=== PATIENT | female | born 1980 | race Native Hawaiian/Other Pacific Islander ===

== ENCOUNTER 2023-01-29 09:40 | Emergency (ER) | payer OTHER ==
[~2023-01-29] VITALS: Ht 162.6 cm; Wt 62.7 kg
[2023-01-29] MEDS ORDERED: KETOROLAC 60MG 2ML VIAL IM ONE (11:45)
[2023-01-29] MEDS ORDERED: AMOX875T2 PO (12:27)
[2023-01-29 12:47] VITALS: BP 118/81; TEMP 99.2; O2SAT 97
== END 2023-01-29 12:48 | disposition home or self-care (01) ==
LOC: M ED 09:40
DX: J01.00 Acute maxillary sinusitis, unspecified (principal); F10.10 Alcohol abuse, uncomplicated; Z79.2 Long term (current) use of antibiotics
CPT/HCPCS: 70450; 71046; 72125; 96372; 99283; J1885

== ENCOUNTER → 2023-03-09 | Outpatient (CLI) | payer OTHER ==
[~2023-03-09] MED LIST: AMOX875T2 PO
== END ==
LOC: M WHC 14:03
PROVIDERS: ATTEND Nurse Practitioner Family
DX: Z12.31 Encounter for screening mammogram for malignant neoplasm of breast (principal)